=== PATIENT | male | born 1975 | race Caucasian/White ===

== ENCOUNTER 2018-12-17 16:05 | Emergency (ER) | payer MEDICARE, MEDICAID ==
[~2018-12-17] VITALS: Ht 180.3 cm; Wt 100.0 kg
[~2018-12-17 16:05] MED LIST: KEN0.1O TP
[2018-12-17] MEDS ORDERED: CETI10TA18 PO (17:17)
== END 2018-12-17 17:24 | disposition home or self-care (01) ==
LOC: ER 16:05
DX: J30.2 Other seasonal allergic rhinitis (principal); H10.11 Acute atopic conjunctivitis, right eye; Z98.890 Other specified postprocedural states
CPT/HCPCS: 99283